=== PATIENT | female | born 1960 | race Caucasian/White ===

== ENCOUNTER → 2019-06-21 16:58 | Outpatient (CLI) | payer BC, SELFPAY ==
--- NOTE | ~2019-06-21 | XR_ITS ---
EXAMINATION: XR tibia fibula RT 2V DATE: 06/21/2019 17:27 INDICATION: Right lower leg pain post fall 2 days prior TECHNIQUE: Anteroposterior and lateral views of the right tibia and fibula were obtained. COMPARISON: None. FINDINGS: Subtle transverse linear lucency consistent with nondisplaced fracture at the junction of the mid to distal thirds of the right fibular diaphysis. No other fractures identified. Alignment remains normal . Joint spaces are normal. Soft tissues are unremarkable. IMPRESSION: 1. Nondisplaced transverse fracture at the mid to distal right fibular diaphysis. Reviewed, dictated and finalized at location A. UALIZATION CONSULTANT IMPRESSION: 1. Nondisplaced transverse fracture at the mid to distal right fibular diaphysi s.
== END ==
PROVIDERS: PCP Pediatrics; Visit Provider Pediatrics
DX: S89.301A Unspecified physeal fracture of lower end of right fibula, initial encounter for closed fracture (principal); X58.XXXA Exposure to other specified factors, initial encounter
CPT/HCPCS: 73590

== ENCOUNTER → 2022-03-22 16:07 | Outpatient (CLI) | payer SELFPAY ==
--- NOTE | ~2022-03-22 | XR_ITS ---
XR shoulder LT min 2V DATE: 03/22/2022 16:26 INDICATION: Left shoulder pain TECHNIQUE: 4 views COMPARISON: None FINDINGS: No fracture or dislocation, periosteal reaction or bone destruction. Normal alignment at th e acromioclavicular and glenohumeral joints. No abnormal soft tissue calcification. IMPRESSION: Negative Reviewed, dictated and finalized at location A. IMPRESSION: Negative
== END ==
PROVIDERS: PCP Pediatrics; Visit Provider Nurse Practitioner Family
DX: M25.512 Pain in left shoulder (principal)
CPT/HCPCS: 73030